=== PATIENT | male | born 1980 | race Caucasian/White ===

== ENCOUNTER 2022-08-21 23:49 | Emergency (ER) | payer SELFPAY ==
[2022-08-22 00:02] VITALS: BP 137/89; PULSE 83; RESP 18; TEMP 36.4; O2SAT 96; BMI 23.7
--- NOTE | 2022-08-22 00:09 | ED_ITS ---
HPI - Abdominal Pain General: Chief Complaint: Abdominal Pain Stated Complaint: abd pain Time Seen by Provider: 08/22/22 00:07 Course Vital Signs: Vital signs: Vital Signs Temperature 97.6 F 08/22/22 00:02 Pulse Rate 83 08/22/22 00:02 Respiratory Rate 18 08/22/22 00:02 Blood Pressure 137/89 08/22/22 00:02 Pulse Oximetry 96 08/22/22 00:02 Discharge Plan Discharge Condition: Stable Referrals: Eric Chris FNP [Primary Care Provider] - Coding Level of Care Code ED Gluing Machine Operator Automatic for Teodora Valdovinos
== END 2022-08-22 00:29 | disposition left against medical advice (07) ==
PROVIDERS: Emergency Provider Family Medicine; PCP Nurse Practitioner Family
DX: Z53.21 Procedure and treatment not carried out due to patient leaving prior to being seen by health care provider (principal)

== ENCOUNTER 2023-08-10 19:30 | Emergency (ER) | payer SELFPAY ==
[2023-08-10 19:39] VITALS: BP 113/81; PULSE 84; RESP 20; TEMP 36.7; O2SAT 97; BMI 23.3
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
[2023-08-10] MEDS: ceFAZolin 2,000 MG in sodium chloride 0.9% (plus) 50 ML 100 MG IV (19:49)
[2023-08-10] MEDS: HYDROmorphone 1 mg/mL INJ 1 mL IVP ×2 (19:50→20:19)
[2023-08-10] MEDS: ondansetron 2 mg/ML SDV 2 mL 4 MG IVP (19:52)
[2023-08-10] MEDS: tetanus-dipt-pertussis 0.5 mL SDV IM (19:52)
[2023-08-10] MEDS: sodium chloride 0.9% 1,000 ML 999 ML IV (19:56)
[2023-08-10] MEDS: lidocaine 2% INJ 20 mL INJECTION (19:56)
[2023-08-10 20:01] VITALS: BP 113/81; PULSE 70; RESP 16; O2SAT 95
[2023-08-10 20:08] LABS: Basophils # 0.2 10^3/uL (0.0-0.1); Basophils % 1.2 %; Eosinophils # 0.4 10^3/uL (0.0-0.8); Hematocrit 46.5 % (37-53); Lymphocytes # 3.8 10^3/uL (0.8-4.8); Lymphocytes % 29.3 %; Mean Corpuscular HGB Conc 35.3 g/dL (30-55); Mean Corpuscular Hemoglobin 32.9 pg (27-33); Mean Corpuscular Volume 93.4 fl (82-101); Mean Platelet Volume 11.1 fL (7.4-10.4); Monocytes # 0.8 10^3/uL (0.2-0.9); Monocytes % 5.8 %; Neutrophils # 7.76 10^3/uL (1.8-7.7); Neutrophils % 60.4 %; Nucleated Red Blood Cells % 0 %; Platelet Count 210 10^3/cmm (157-399); Red Blood Count 4.98 10^6/uL (3.85-5.65); Red Cell Distribution Width 13.1 % (12.1-15.1); White Blood Count 12.85 10^3/uL (3.29-11.43)
[2023-08-10 20:32] LABS: Alanine Aminotransferase 9 U/L (0-41); Albumin Level 4.6 g/dL (3.5-5.2); Alkaline Phosphatase 87 U/L (40-130); Anion Gap 22.9 (5-19); Aspartate Amino Transferase 17 U/L (0-40); Blood Urea Nitrogen 7 mg/dL (6-20); Calcium 9.5 mg/dL (8.5-10.5); Carbon Dioxide 19 mmol/L (22-29); Chloride 100 mmol/L (98-107); Creatinine Clr Calc Pharmacy 87.0149; Glomerular Filtration Rate 81.6 mL/min (90-130); Glucose 80 mg/dL (65-115); Osmolality Calculated 283 mOsm/kg (285-295); Potassium 3.9 mmol/L (3.5-5.1); Sodium 138 mmol/L (136-145); Total Bilirubin 0.4 mg/dL (0.15-1.2); Total Protein 6.6 g/dL (6.6-8.7)
[2023-08-10] MEDS: HYDROcodone-acetaminophen 5-325 mg Tablet 2 TAB PO (21:16)
[2023-08-10 21:17] VITALS: BP 113/81; PULSE 70; RESP 16; TEMP 36.7; O2SAT 95
[2023-08-10] MEDS: bacitracin ointment Pkt TOPICAL (21:17)
== END 2023-08-10 21:20 | disposition home or self-care (01) ==
PROVIDERS: Emergency Provider Emergency Medicine
DX: T23.062A Burn of unspecified degree of back of left hand, initial encounter (principal); T23.052A Burn of unspecified degree of left palm, initial encounter; T23.051A Burn of unspecified degree of right palm, initial encounter; S51.811A Laceration without foreign body of right forearm, initial encounter; X03.3XXA Fall due to controlled fire, not in building or structure, initial encounter; Z23 Encounter for immunization
CPT/HCPCS: 80053; 85025; 90471; 90715; 96365; 96375; 96376; 99284; J0690; J1170; J2405; J7030